=== PATIENT | male | born 1955 | race Caucasian/White ===

== ENCOUNTER 2016-08-10 13:17 | Inpatient (IN) | payer SELFPAY ==
--- NOTE | 2016-08-10 13:30 | ER Document Report ---
ED Medical Screen (RME) - General Stated Complaint: WEAKNESS Mode of Arrival: Wheelchair Notes: Patient presents to the emergency department with complaints of strokelike symptoms. Reports he woke up at 4:00 this morning feeling weak and off balance. His girlfriend at his reports the symptoms are worse than the last stroke he had 5 years ago. He denies fever vomiting diarrhea. He just buried his sister 2 weeks ago from a stroke. Patient's blood pressure extremely elevated. I have consulted the attending provider dr valadez for CT Head per [facility] guidelines I have greeted and performed a rapid initial assessment of this patient. A comprehensive ED assessment and evaluation of the patient, analysis of test results and completion of the medical decision making process will be conducted by additional ED providers. - Related Data Allergies/Adverse Reactions: No Known Allergies Allergy (Unverified 08/10/16 13:26)
[2016-08-10 14:33] LABS: ABSOLUTE LYMPHOCYTES (AUTO) 1.1 10^3/uL (0.5-4.7); ABSOLUTE MONOCYTES (AUTO) 0.3 10^3/uL (0.1-1.4); ABSOLUTE NEUT (AUTO) 4.6 10^3/uL (1.7-8.2); BASOPHILS % (AUTO) 0.6 % (0-2); EOSINOPHILS % (AUTO) 0.3 % (0-6); HEMATOCRIT 46.3 % (37.9-51.0); HEMOGLOBIN 15.3 g/dL (13.5-17.0); HGB HCT DIFFERENCE -0.4; LYMPHOCYTES % (AUTO) 17.8 % (13-45); MEAN CORPUSCULAR HEMOGLOBIN 29.1 pg (27.0-33.4); MEAN CORPUSCULAR HGB CONC 33.1 g/dL (32.0-36.0); MEAN CORPUSCULAR VOLUME 88 fl (80-97); MONOCYTES % (AUTO) 5.7 % (3-13); PROTHROMBIN TIME 12.7 SEC (11.4-15.4); RED BLOOD COUNT 5.27 10^6/uL (4.35-5.55); RED CELL DISTRIBUTION WIDTH 14.3 % (11.5-14.0); SEGMENTED NEUTROPHILS % (AUTO) 75.6 % (42-78); WHITE BLOOD COUNT 6.1 10^3/uL (4.0-10.5)
[2016-08-10 14:34] LABS: PARTIAL THROMBOPLASTIN TIME 28.6 SEC (23.5-35.8)
[2016-08-10] MEDS ORDERED: LABETALOL HCL INJ 20 MG/4 ML DISP.SYRIN IV ONE (14:44)
[2016-08-10] MEDS ORDERED: NICOTINE 14 MG/24 HR PATCH.TD24 TD ONE (14:45)
--- NOTE | 2016-08-10 14:47 | ER Document Report ---
ED Neuro Symptoms/Deficit - General Chief Complaint: S/S of Possible Stroke Stated Complaint: WEAKNESS Time seen by provider: 14:45 Mode of Arrival: Wheelchair Information source: Patient Notes: As is a 61-year-old man with a history of untreated hypertension, 2 pack per day smoker presents to the emergency room with acute onset of right sided weakness, unsteady gait. Patient states that the symptoms started at 4:00 this morning. TRAVEL OUTSIDE OF THE [place] IN LAST 30 DAYS: No - HPI Patient complains to provider of: Difficulty walking, Weakness Onset: This morning Awoke with symptoms: Yes Symptoms are: Constant Duration: Continues in ED Quality of pain: No pain Severity: None Pain Level: Denies Context: denies: None, Insect bite, Tick bite, Falling, Head injury, Other Loss of consciousness: No: No loss of consciousness, Unsure, Dazed, Brief ( seconds), Prolonged (minutes), Still comatose Was STROKE ALERT Called: Yes Baseline Cognitive: Alert, oriented X 3 Baseline Gait: Walks w/o assistance Pre-existing weakness: No: Face, General, Hand, Lower extremity, Upper extremity Alert To: Name/Voice Patient Orientation: Person, Place, Time, Events Character of altered mental status: No: Agitated, Confused, Combative, Decreased responsiveness, Disoriented, Seizure activity, Trouble concentrating, Unchanged from baseline, Unresponsive New weakness: RUE, RLE Altered sensation: denies: LUE, LLE, RUE, RLE, L facial, R facial, General ( diffuse) Decreased ability to stand/walk: Off balance Vision problem/glaucoma: No Associated symptoms: denies: Chest pain, Seizure, Short of breath Similar symptoms previously: No Recently seen / treated by doctor: No - Related Data Allergies/Adverse Reactions: No Known Allergies Allergy (Unverified 08/10/16 13:26) Home Medications: Current Home Medications No Home Medications 08/10/16 [History] Past Medical History - General Information source: Patient - Social History Smoking Status: Current Every Day Smoker Cigarette use (# per day): Yes - 2 packs per day Chew tobacco use (# tins/day): No Smoking Education Provided: Yes - approximately 3 minutes Frequency of alcohol use: None Drug Abuse: None Lives with: Spouse/Significant other Family History: None Patient has suicidal ideation: No Patient has homicidal ideation: No - Past Medical History Cardiac Medical History: Reports: Hx Hypertension Pulmonary Medical History: Reports: None EENT Medical History: Reports: None Neurological Medical History: Reports: Hx Cerebrovascular Accident Endocrine Medical History: Reports: None Renal/ Medical History: Denies: Hx Peritoneal Dialysis Malignancy Medical History: Reports None GI Medical History: Reports: None Musculoskeltal Medical History: Reports None Skin Medical History: Reports None Psychiatric Medical History: Reports: None Traumatic Medical History: Reports: None Infectious Medical History: Reports: None Past Surgical History: Reports: Other - Left lower extremity orthopedic surgery Review of Systems - Review of Systems Notes: Review of systems: Constitutional: Denies fever, chills. EENT: Denies ear pain, sinus tenderness, throat pain, throat swelling. Cardiovascular: Denies chest pain, palpitations, dyspnea or edema. Respiratory: Denies wheezing, cough, hemoptysis. Abdomen: Denies abdominal pain, nausea, vomiting, diarrhea. Denies BRBPR or melena. Genitourinary: Denies dysuria, pyuria, hematuria, flank pain. Musculoskeletal: denies joint pain or swelling, denies back pain. Neurologic: Denies headache, photophobia, neck stiffness, weakness. Denies loss of bowel or bladder function. Denies saddle anesthesia. Otherwise, neurologic symptoms as above in the history of present illness. Skin: Denies rash, lesions. Physical Exam - Vital signs Vitals: Temp Pulse Resp BP Pulse Ox 98.3 F 89 18 191/113 H 96 08/10/16 13:24 08/10/16 13:24 08/10/16 13:24 08/10/16 13:24 08/10/16 13:24 Notes: Physical exam: GENERAL: HEAD: Atraumatic, normocephalic. EYES: Pupils equal round and reactive to light, extraocular movements intact, sclera anicteric, conjunctiva are normal. ENT: TMs normal, nares patent, oropharynx clear without exudates. Moist mucous membranes. NECK: Normal range of motion, supple without lymphadenopathy or JVD. LUNGS: Breath sounds clear to auscultation bilaterally and equal. No wheezes rales or rhonchi. HEART: Regular rate and rhythm without murmurs, rubs or gallops. ABDOMEN: Soft, normoactive bowel sounds. No tenderness to palpation. No guarding, no rebound. No masses appreciated. EXTREMITIES: Normal range of motion, no pitting or edema. No clubbing or cyanosis. NEUROLOGICAL: GCS is 15, patient is alert and can only responsive. He is able to answer both his month and age correctly, he is able to close his eyes and open them up, make a fist and open them up, he has normal gaze. Patient's visual esparza are normal, there is no facial palsy, the right upper extremity and right lower extremity does drift but does not touch the bed, patient does have limited ataxia in the right upper extremity, sensation is normal to the face upper and lower extremities, patient has no aphasia, normal "best" language, no dysarthria , no extinction. NIH score is 3 PSYCH: Normal mood, normal affect. SKIN: Warm, Dry, normal turgor, no rashes or lesions noted. Course - Re-evaluation Re-evalutation: 08/10/16 16:11 Note: This patient does have an NIH of 3 consistent with a small stroke. He is not a candidate for thrombolytics based upon the time span greater than 4.5 hours. He is noted to have accelerated hypertension and was started on blood pressure medicine. 08/10/16 19:35 08/10/16 19:36 - Vital Signs Vital signs: Temp Pulse Resp BP Pulse Ox 98.3 F 89 18 191/113 H 96 08/10/16 13:24 08/10/16 13:24 08/10/16 13:24 08/10/16 13:24 08/10/16 13:24 - Laboratory Result Diagrams: 08/10/16 14:18 08/10/16 14:18 Laboratory results interpreted by me: 08/10/16 14:18 RDW 14.3 H - Diagnostic Test Radiology reviewed: Image reviewed, Reports reviewed - CT of the head shows no acute insult Critical Care Note - Critical Care Note Total time excluding time spent on procedures (mins): 60 Discharge - Discharge Clinical Impression: acute stroke, accelerated hypertension Clinical Impression: (Ruled Out): QT stroke Condition: Stable Disposition: ADMITTED INPATIENT Admitting Provider: Hospitalist - Dr. Sanchez Unit Admitted: [facility]
[2016-08-10 14:49] LABS: ALANINE AMINOTRANSFERASE 32 U/L (21-72); ALBUMIN 4.9 g/dL (3.5-5.0); ALKALINE PHOSPHATASE 114 U/L (38-126); ANION GAP 10 (5-19); ASPARTATE AMINO TRANSFERASE 18 U/L (17-59); BILIRUBIN,TOTAL 0.7 mg/dL (0.2-1.3); BLOOD UREA NITROGEN 7 mg/dL (7-20); CALCIUM 9.8 mg/dL (8.4-10.2); CARBON DIOXIDE 29 mmol/L (22-30); CHLORIDE 102 mmol/L (98-107); CREATINE KINASE 52 U/L (55-170); CREATININE RESULT 0.67 mg/dL (0.52-1.25); GLUCOSE 104 mg/dL (75-110); POTASSIUM 4.3 mmol/L (3.6-5.0); SODIUM 141.1 mmol/L (137-145); TOTAL PROTEIN 8.1 g/dL (6.3-8.2)
[2016-08-10 15:01] LABS: CREATINE KINASE MB 0.72 ng/mL (<4.55)
[2016-08-10 15:06] LABS: TROPONIN I < 0.012 ng/mL
--- NOTE | 2016-08-10 17:22 | PDOC H&P ---
History of Present Illness Admission Date/PCP: 08/10/16 16:25 Patient complains of: weakness right upper lower extremities and unsteady gait History of Present Illness: TIMMY REYNOLDS is a 61 year old male who woke up early this morning with unsteady gait , weakness and numbness right upper lower extremities Patient went back to sleep and later his gait was still unsteady , he felt like "a stiff neck " , and the fingers were still "spongy " He came to the ED for evaluation ; he was found not to be a candidate for TPA (NIH Score of 3 ) and referred to Hospitalist for admission Patient had a previous stroke in 2010 (MRI showed acute infarct white matter right cerebral hemisphere-carotid US showed 50% stenosis -echo EF 45% ). Patient recovered after previous stroke without sequellae Past Medical History Cardiac Medical History: Reports: Hypertension Neurological Medical History: Reports: Ischemic CVA - 2010 Past Surgical History Past Surgical History: Reports: Orthopedic Surgery - Left Leg, Tonsillectomy Social History Lives with: Spouse/Significant other Smoking Status: Current Every Day Smoker Cigarettes Packs Per Day: 40 Frequency of Alcohol Use: None Last Alcohol Use: 08/10/16 - Advance Directive Resuscitation Status: Full Code Surrogate healthcare decision maker:: Pat Family History Family History: CAD, CVA Parental Family History Reviewed: Yes - mother [place] 84 yo Children Family History Reviewed: Yes Sibling(s) Family History Reviewed.: Yes - brother [place] 49 yo sister stroke age 64 Medication/Allergy Allergies/Adverse Reactions: No Known Allergies Allergy (Unverified 08/10/16 13:26) Review of Systems Constitutional: ABSENT: chills, fever(s), headache(s), weight gain, weight loss Eyes: ABSENT: visual disturbances Ears: ABSENT: hearing changes Cardiovascular: ABSENT: chest pain, dyspnea on exertion, edema, orthropnea, palpitations Respiratory: ABSENT: cough, hemoptysis Gastrointestinal: ABSENT: abdominal pain, constipation, diarrhea, hematemesis, hematochezia, nausea, vomiting Genitourinary: ABSENT: dysuria, hematuria Musculoskeletal: ABSENT: joint swelling Integumentary: ABSENT: rash, wounds Neurological: PRESENT: as per HPI, abnormal gait, numbness, weakness - right upper lower extremities. ABSENT: abnormal speech, confusion, dizziness, focal weakness, syncope Psychiatric: ABSENT: anxiety, depression, homidical ideation, suicidal ideation Endocrine: ABSENT: cold intolerance, heat intolerance, polydipsia, polyuria Hematologic/Lymphatic: ABSENT: easy bleeding, easy bruising Physical Exam Vital Signs: Temp Pulse Resp BP Pulse Ox 98.3 F 86 20 160/97 H 97 08/10/16 13:24 08/10/16 14:34 08/10/16 16:01 08/10/16 16:01 08/10/16 16:01 General appearance: PRESENT: no acute distress Head exam: PRESENT: atraumatic, normocephalic Eye exam: PRESENT: conjunctiva pink, EOMI, PERRLA. ABSENT: scleral icterus Ear exam: PRESENT: normal external ear exam Mouth exam: PRESENT: moist, tongue midline Neck exam: ABSENT: carotid bruit, JVD, lymphadenopathy, thyromegaly Respiratory exam: PRESENT: clear to auscultation manjula. ABSENT: rales, rhonchi, wheezes Cardiovascular exam: PRESENT: RRR. ABSENT: diastolic murmur, rubs, systolic murmur Pulses: PRESENT: normal dorsalis pedis pul Vascular exam: PRESENT: normal capillary refill GI/Abdominal exam: PRESENT: normal bowel sounds, soft. ABSENT: distended, guarding, mass, organolmegaly, rebound, tenderness Rectal exam: PRESENT: deferred Extremities exam: PRESENT: full ROM. ABSENT: calf tenderness, clubbing, pedal edema Neurological exam: PRESENT: alert, awake, oriented to person, oriented to place , oriented to time, oriented to situation, motor sensory deficit - slight decrease strengh right upper lower extremities no facial droop Psychiatric exam: PRESENT: appropriate affect, normal mood. ABSENT: homicidal ideation, suicidal ideation Skin exam: PRESENT: dry, intact, warm. ABSENT: cyanosis, rash Results Laboratory Results: Labs- Entire Visit 08/10/16 08/10/16 08/10/16 14:18 14:18 14:18 WBC 6.1 RBC 5.27 Hgb 15.3 Hct 46.3 MCV 88 MCH 29.1 MCHC 33.1 RDW 14.3 H Plt Count 228 Seg Neutrophils % 75.6 Lymphocytes % 17.8 Monocytes % 5.7 Eosinophils % 0.3 Basophils % 0.6 Absolute Neutrophils 4.6 Absolute Lymphocytes 1.1 Absolute Monocytes 0.3 Absolute Eosinophils 0.0 Absolute Basophils 0.0 PT 12.7 INR 0.93 APTT 28.6 Sodium 141.1 Potassium 4.3 Chloride 102 Carbon Dioxide 29 Anion Gap 10 BUN 7 Creatinine 0.67 Est GFR ( Amer) > 60 Est GFR (Non-Af Amer) > 60 Glucose 104 POC Glucose Calcium 9.8 Total Bilirubin 0.7 Direct Bilirubin 0.0 AST 18 ALT 32 Alkaline Phosphatase 114 Creatine Kinase 52 L CK-MB (CK-2) Troponin I Total Protein 8.1 Albumin 4.9 08/10/16 08/10/16 14:18 14:23 WBC RBC Hgb Hct MCV MCH MCHC RDW Plt Count Seg Neutrophils % Lymphocytes % Monocytes % Eosinophils % Basophils % Absolute Neutrophils Absolute Lymphocytes Absolute Monocytes Absolute Eosinophils Absolute Basophils PT INR APTT Sodium Potassium Chloride Carbon Dioxide Anion Gap BUN Creatinine Est GFR ( Amer) Est GFR (Non-Af Amer) Glucose POC Glucose 98 Calcium Total Bilirubin Direct Bilirubin AST ALT Alkaline Phosphatase Creatine Kinase CK-MB (CK-2) 0.72 Troponin I < 0.012 Total Protein Albumin Impressions: Head CT 08/10/16 13:25 IMPRESSION: NORMAL BRAIN CT WITHOUT CONTRAST. Chest X-Ray 08/10/16 13:26 IMPRESSION: NO ACUTE RADIOGRAPHIC FINDING IN THE CHEST. Assessment & Plan - Diagnosis (1) Acute CVA (cerebrovascular accident) Is this a current diagnosis for this admission?: YesPlan: complete workup MRI brain tonite , carotid ultrasound, echocatdiogram initiate therapy with ecotrin 325 mg and lipitor 80 mg MEND Exams (2) Hypertension Qualifiers: Hypertension type: essential hypertension Qualified Code(s): I10 - Essential (primary) hypertension Is this a current diagnosis for this admission?: YesPlan: allow for permissive hypertension (3) Cigarette nicotine dependence Qualifiers: Substance use status: uncomplicated Qualified Code(s): F17.210 - Nicotine dependence, cigarettes, uncomplicated Is this a current diagnosis for this admission?: YesPlan: nicotine patch (4) DVT prophylaxis Is this a current diagnosis for this admission?: Yes - Time Time Spent: 50 to 70 Minutes - Inpatient Certification Based on my medical assessment, after consideration of the patient's comorbidities, presenting symptoms, or acuity I expect that the services needed warrant INPATIENT care.: Yes I certify that my determination is in accordance with my understanding of Medicare's requirements for reasonable and necessary INPATIENT services [42 CFR 412.3e].: Yes Medical Necessity: Need Close Monitoring Due to Risk of Patient Decompensation, Need For Continuous Telemetry Monitoring
[2016-08-10] MEDS: ASPIRIN 325 MG TABLET, ENT COATED PO SCH (19:00)
--- NOTE | 2016-08-10 22:13 | EKG REPORT ---
SEVERITY:- ABNORMAL ECG - SINUS RHYTHM LEFT ANTERIOR FASCICULAR BLOCK PROBABLE ANTEROSEPTAL INFARCT, OLD PROLONGED QT INTERVAL : Confirmed by: Rodrigo Bellamy 10-Aug-2016 22:11:42
[2016-08-10] MEDS: ATORVASTATIN CALCIUM 80 MG TABLET PO SCH (23:34)
[2016-08-11] MEDS ORDERED: MORPHINE SULFATE INJ PF 2 MG/2 ML AMPULE IV PRN ×2 (00:38→04:00)
[2016-08-11] MEDS ORDERED: MORPHINE SULFATE 10 MG/ML INJ ONE (01:03)
[2016-08-11] MEDS ORDERED: MORPHINE SULFATE 10 MG/ML INJ IV PRN (02:57)
[2016-08-11 06:42] LABS: ABSOLUTE LYMPHOCYTES (AUTO) 1.9 10^3/uL (0.5-4.7); ABSOLUTE MONOCYTES (AUTO) 0.4 10^3/uL (0.1-1.4); BASOPHILS % (AUTO) 0.4 % (0-2); EOSINOPHILS % (AUTO) 0.5 % (0-6); HEMATOCRIT 42.9 % (37.9-51.0); HEMOGLOBIN 14.1 g/dL (13.5-17.0); HGB HCT DIFFERENCE -0.6; LYMPHOCYTES % (AUTO) 30.2 % (13-45); MEAN CORPUSCULAR HEMOGLOBIN 28.8 pg (27.0-33.4); MEAN CORPUSCULAR HGB CONC 32.8 g/dL (32.0-36.0); MEAN CORPUSCULAR VOLUME 88 fl (80-97); MONOCYTES % (AUTO) 6.9 % (3-13); RED BLOOD COUNT 4.89 10^6/uL (4.35-5.55); RED CELL DISTRIBUTION WIDTH 14.4 % (11.5-14.0); WHITE BLOOD COUNT 6.4 10^3/uL (4.0-10.5)
[2016-08-11 06:51] LABS: ALANINE AMINOTRANSFERASE 27 U/L (21-72); ALBUMIN 3.8 g/dL (3.5-5.0); ALKALINE PHOSPHATASE 91 U/L (38-126); ANION GAP 11 (5-19); ASPARTATE AMINO TRANSFERASE 16 U/L (17-59); BILIRUBIN,TOTAL 0.7 mg/dL (0.2-1.3); BLOOD UREA NITROGEN 6 mg/dL (7-20); CALCIUM 9.6 mg/dL (8.4-10.2); CARBON DIOXIDE 26 mmol/L (22-30); CHLORIDE 103 mmol/L (98-107); CHOLESTEROL 173.45 mg/dL (0-200); Direct HDL 39 mg/dL (>40); GLUCOSE 95 mg/dL (75-110); POTASSIUM 3.9 mmol/L (3.6-5.0); SODIUM 139.5 mmol/L (137-145); TRIGLYCERIDES 79 mg/dL (<150)
[2016-08-11 07:02] LABS: DIRECT LDL 120 mg/dL (<100)
[2016-08-11] MEDS: ENOXAPARIN SODIUM INJ 40 MG/0.4 ML DISP.SYRIN SUBCUT SCH (10:26)
--- NOTE | 2016-08-11 10:33 | EKG REPORT ---
SEVERITY:- ABNORMAL ECG - SINUS RHYTHM LEFT ANTERIOR FASCICULAR BLOCK BORDERLINE T WAVE ABNORMALITIES BORDERLINE PROLONGED QT INTERVAL : Confirmed by: Rodrigo Bellamy 11-Aug-2016 10:32:51
--- NOTE | 2016-08-11 16:55 | PDOC PROGRESS REPORT ---
Subjective Progress Note for:: 08/11/16 Subjective:: Patient is somewhat improved he still has some weakness in his right upper and his right lower extremity An MRI of the brain confirmed small ischemic stroke Patient was monitored he did not have any arrhythmia His mentation remains excellent Physical Exam Vital Signs: Temp Pulse Resp BP Pulse Ox 98.0 F 80 18 151/81 H 95 08/11/16 15:41 08/11/16 15:41 08/11/16 15:41 08/11/16 15:41 08/11/16 15:41 Intake & Output 08/10/16 08/11/16 08/12/16 00:59 00:59 00:59 Intake Total 1500 Output Total 1285 Balance 215 Weight 81.9 kg General appearance: PRESENT: no acute distress, well-developed, well-nourished Head exam: PRESENT: atraumatic, normocephalic Eye exam: PRESENT: conjunctiva pink, EOMI, PERRLA. ABSENT: scleral icterus Ear exam: PRESENT: normal external ear exam Mouth exam: PRESENT: moist, tongue midline Neck exam: ABSENT: carotid bruit, JVD, lymphadenopathy, thyromegaly Respiratory exam: PRESENT: clear to auscultation manjula. ABSENT: rales, rhonchi, wheezes Cardiovascular exam: PRESENT: RRR. ABSENT: diastolic murmur, rubs, systolic murmur Pulses: PRESENT: normal dorsalis pedis pul Vascular exam: PRESENT: normal capillary refill GI/Abdominal exam: PRESENT: normal bowel sounds, soft. ABSENT: distended, guarding, mass, organolmegaly, rebound, tenderness Rectal exam: PRESENT: deferred Extremities exam: PRESENT: full ROM. ABSENT: calf tenderness, clubbing, pedal edema Neurological exam: PRESENT: alert, awake, oriented to person, oriented to place , oriented to time, oriented to situation, CN II-XII grossly intact. ABSENT: motor sensory deficit Psychiatric exam: PRESENT: appropriate affect, normal mood. ABSENT: homicidal ideation, suicidal ideation Skin exam: PRESENT: dry, intact, warm. ABSENT: cyanosis, rash Results Laboratory Results: 08/11/16 05:18 08/11/16 06:18 08/11/16 08/11/16 08/11/16 05:18 05:18 06:18 WBC 6.4 RBC 4.89 Hgb 14.1 Hct 42.9 MCV 88 MCH 28.8 MCHC 32.8 RDW 14.4 H Plt Count 215 Seg Neutrophils % 62.0 Lymphocytes % 30.2 Monocytes % 6.9 Eosinophils % 0.5 Basophils % 0.4 Absolute Neutrophils 4.0 Absolute Lymphocytes 1.9 Absolute Monocytes 0.4 Absolute Eosinophils 0.0 Absolute Basophils 0.0 Sodium 139.5 Potassium 3.9 Chloride 103 Carbon Dioxide 26 Anion Gap 11 BUN 6 L Creatinine 0.60 Est GFR ( Amer) > 60 Est GFR (Non-Af Amer) > 60 Glucose 95 Calcium 9.6 Total Bilirubin 0.7 AST 16 L ALT 27 Alkaline Phosphatase 91 Total Protein 7.0 Albumin 3.8 Triglycerides 79 Cholesterol 173.45 LDL Cholesterol Direct 120 H VLDL Cholesterol 16.0 HDL Cholesterol 39 L TSH 1.86 08/11/16 08/11/16 00:24 06:18 Troponin I < 0.012 < 0.012 Impressions: Head CT 08/10/16 13:25 IMPRESSION: NORMAL BRAIN CT WITHOUT CONTRAST. Chest X-Ray 08/10/16 13:26 IMPRESSION: NO ACUTE RADIOGRAPHIC FINDING IN THE CHEST. Head MRI 08/10/16 16:53 IMPRESSION: MILD MICROVASCULAR ISCHEMIC CHANGE. FOCAL AREA OF RESTRICTED DIFFUSION IN THE LEFT BASAL GANGLIA CONSISTENT WITH ACUTE INFARCT. Assessment & Plan - Diagnosis (1) Acute CVA (cerebrovascular accident) Is this a current diagnosis for this admission?: Yes (2) Hypertension Qualifiers: Hypertension type: essential hypertension Qualified Code(s): I10 - Essential (primary) hypertension Is this a current diagnosis for this admission?: Yes (3) Cigarette nicotine dependence Qualifiers: Substance use status: uncomplicated Qualified Code(s): F17.210 - Nicotine dependence, cigarettes, uncomplicated Is this a current diagnosis for this admission?: Yes (4) DVT prophylaxis Is this a current diagnosis for this admission?: Yes - Time Time Spent with patient: Awaiting get reports on carotid ultrasound and echocardiogram to be performed Continue present management Patient will be discharged tomorrow outpatient physical therapy Time Spent with patient: 25-34 minutes
[2016-08-11] MEDS ORDERED: NICOTINE 21 MG/24 HR PATCH.TD24 TD ONE (20:15)
[2016-08-11] MEDS: ATORVASTATIN CALCIUM 80 MG TABLET PO SCH (21:48)
[2016-08-12] MEDS: ENOXAPARIN SODIUM INJ 40 MG/0.4 ML DISP.SYRIN SUBCUT SCH (08:46)
[2016-08-12] MEDS: ASPIRIN 325 MG TABLET, ENT COATED PO SCH (09:55)
[2016-08-12] MEDS ORDERED: NICOTINE 21 MG/24 HR PATCH.TD24 TD SCH (10:00)
[2016-08-12] MEDS ORDERED: AMLODIPINE BESYLATE 5 MG TABLET PO SCH (10:00)
[2016-08-12 17:16] VITALS: BP 179/63
--- NOTE | 2016-08-12 18:03 | XCELERA REPORT ---
[address] [address] Transthoracic Echocardiogram Report Name: TIMMY REYNOLDS Age: 61 yrs Gender: Male : 1955 Patient Status: Inpatient Patient Location: [id number]\S\329\S\A Study Date: 08/12/2016 09:05 AM Height: 73 in Weight: 184 lb BSA: 2.1 m2 Procedure: A two-dimensional transthoracic echocardiogram with color flow and Doppler was performed. Study Quality: Fair. Reason For Study: acute CVA History: CVA. Ordering Physician: MARILIA CHEW Performed By: Becca Berry Interpretation Summary There is no obvious cardiac source of embolus noted on this transthoracic echocardiogram. Follow-up with a KELLY is suggested if cardiac source is still suspected. The left ventricle is mildly dilated. There is normal left ventricular wall thickness. Left ventricular systolic function is mildly reduced. LV EF is 45% Doppler measurements suggest impaired left ventricular relaxation, which is associated with grade I/IV or mild diastolic dysfunction There is mild global hypokinesis of the left ventricle. There is no thrombus. There is no ventricular septal defect visualized. The right ventricle is normal in size and function. The left atrial size is normal. The interatrial septum is intact with no evidence for an atrial septal defect. There is no evidence of mitral valve prolapse. There is no mitral valve stenosis. There is a mild amount of mitral regurgitation There is no aortic valve stenosis There is no LVOT obstruction. There is a trace to mild amount of aortic regurgitation There is no tricuspid stenosis. There is a trace amount of tricuspid regurgitation Right ventricular systolic pressure is normal. RVSP is 26 mm of Hg. The aortic root is mildly dilated There is no pericardial effusion. MMode/2D Measurements \T\ Calculations RVDd: 2.0 cm LVIDd: 5.8 cm FS: 27.4 % Ao root diam: 3.8 cm IVSd: 1.1 cm LVIDs: 4.2 cm EDV(Teich): 164.8 ml LVPWd: 1.1 cm ESV(Teich): 78.2 ml Ao root area: 11.1 cm2 EF(Teich): 52.6 % LA dimension: 3.7 cm Doppler Measurements \T\ Calculations MV E max susie: MV P1/2t max susie: Ao V2 max: LV V1 max P.4 cm/sec 43.4 cm/sec 96.0 cm/sec 2.0 mmHg MV A max susie: MV P1/2t: 38.1 msec Ao max PG: LV V1 max: 73.5 cm/sec 3.7 mmHg 69.9 cm/sec MV E/A: 0.58 MVA(P1/2t): 5.8 cm2 MV dec slope: 334.1 cm/sec2 MV dec time: 0.12 sec PA V2 max: TR max susie: 82.9 cm/sec 227.0 cm/sec PA max PG: TR max P.6 mmHg 2.8 mmHg Left Ventricle The left ventricle is mildly dilated. There is normal left ventricular wall thickness. Left ventricular systolic function is mildly reduced. LV EF is 45%. Doppler measurements suggest impaired left ventricular relaxation, which is associated with grade I/IV or mild diastolic dysfunction. There is mild global hypokinesis of the left ventricle. There is no thrombus. There is no ventricular septal defect visualized. Right Ventricle The right ventricle is normal in size and function. Atria The right atrium is normal. The left atrial size is normal. The interatrial septum is intact with no evidence for an atrial septal defect. Mitral Valve There is no evidence of mitral valve prolapse. There is no vegetation seen on the mitral valve. There is no mitral valve stenosis. There is a mild amount of mitral regurgitation. Aortic Valve There is no aortic valve stenosis. There is no LVOT obstruction. There is a trace to mild amount of aortic regurgitation. Tricuspid Valve There is no tricuspid stenosis. There is a trace amount of tricuspid regurgitation. Right ventricular systolic pressure is normal. RVSP is 26 mm of Hg. Pulmonic Valve There is no pulmonic valvular stenosis. There is no pulmonic valvular regurgitation. Great Vessels The aortic root is mildly dilated. Effusions There is no pericardial effusion. : MARILIA CHEW > Hannah Elizondo
--- NOTE | 2016-08-12 18:51 | PDOC DISCHARGE SUMMARY ---
General - Admit/Disc Date/PCP Admission Date/Primary Care Provider: 08/10/16 16:57 Discharge Date: 08/12/16 - Discharge Diagnosis (1) Acute CVA (cerebrovascular accident) Is this a current diagnosis for this admission?: YesSummary: Patient presented to the ED with left-sided hemiparesis He was not a candidate for TPA Initial CT of the brain was unremarkable An MRI showed restricted diffusion in the left basal ganglia Carotid ultrasound was unremarkable Echocardiogram showed decreased EF at 45% and hypokinesis with the left ventricle Patient was evaluated by physical therapy, and he did well with a rolling walker Patient wanted to go home with outpatient PT he was referred to cardiology for close follow-up; (2) Hypertension Is this a current diagnosis for this admission?: YesSummary: Patient was discharged on ramipril and Coreg His blood pressure during his hospital stay was around 117/80 We suspect that the patient had accelerated hypertension prior to his CVA (3) Cigarette nicotine dependence Is this a current diagnosis for this admission?: YesSummary: Patient was given a nicotine patch (4) DVT prophylaxis Is this a current diagnosis for this admission?: Yes (5) Cardiomyopathy Is this a current diagnosis for this admission?: YesSummary: Likely ischemic cardiomyopathy with an EF of 45% And hypokinesis of the left ventricle Patient was discharged on ramipril aspirin and Coreg Systolic dysfunction was well compensated at discharge Patient is to follow up with cardiology - Additional Information Resuscitation Status: Full Code Discharge Diet: Cardiac Discharge Activity: Activity As Tolerated Home Medications: Aspirin [Ecotrin 325 mg EC Tablet] 325 mg PO DAILY #30 tabec 08/12/16 Carvedilol [Coreg 6.25 mg Tablet] 6.25 mg PO Q12 #60 tablet 08/12/16 Nicotine [Nicoderm 21 mg/24 Hr Transderm Patch] 1 each TD DAILY #30 patch.td24 08/12/16 Ramipril [Altace 2.5 mg Capsule] 1 cap PO BID #60 capsule 08/12/16 Rosuvastatin Calcium [Crestor 20 mg Tablet] 20 mg PO DAILY #30 tablet 08/12/16 History of Present Illness Patient complains of: weakness right upper right lower extemities History of Present Illness: TIMMY REYNOLDS is a 61 year old male who woke up early this morning with unsteady gait , weakness and numbness right upper lower extremities Patient went back to sleep and later his gait was still unsteady , he felt like "a stiff neck " , and the fingers were still "spongy " He came to the ED for evaluation ; he was found not to be a candidate for TPA (NIH Score of 3 ) and referred to Hospitalist for admission Patient had a previous stroke in 2010 (MRI showed acute infarct white matter right cerebral hemisphere-carotid US showed 50% stenosis -echo EF 45% ). Patient recovered after previous stroke without sequellae Hospital Course Hospital Course: See above Physical Exam Vital Signs: Temp Pulse Resp BP Pulse Ox 97.7 F 89 18 179/63 H 96 08/12/16 18:34 08/12/16 18:34 08/12/16 18:34 08/12/16 18:34 08/12/16 18:34 Intake & Output 08/11/16 08/12/16 08/13/16 00:59 00:59 00:59 Intake Total 2466 1430 Output Total 1885 300 Balance 581 1130 Weight 81.9 kg 81.3 kg General appearance: PRESENT: no acute distress, well-developed, well-nourished Head exam: PRESENT: atraumatic, normocephalic Eye exam: PRESENT: conjunctiva pink, EOMI, PERRLA. ABSENT: scleral icterus Ear exam: PRESENT: normal external ear exam Mouth exam: PRESENT: moist, tongue midline Neck exam: ABSENT: carotid bruit, JVD, lymphadenopathy, thyromegaly Respiratory exam: PRESENT: clear to auscultation manjula. ABSENT: rales, rhonchi, wheezes Cardiovascular exam: PRESENT: RRR. ABSENT: diastolic murmur, rubs, systolic murmur Pulses: PRESENT: normal dorsalis pedis pul Vascular exam: PRESENT: normal capillary refill GI/Abdominal exam: PRESENT: normal bowel sounds, soft. ABSENT: distended, guarding, mass, organolmegaly, rebound, tenderness Rectal exam: PRESENT: deferred Extremities exam: PRESENT: full ROM. ABSENT: calf tenderness, clubbing, pedal edema Neurological exam: PRESENT: alert, awake, oriented to person, oriented to place , oriented to time, oriented to situation, other - Slight weakness right upper right lower extremities. ABSENT: motor sensory deficit Psychiatric exam: PRESENT: appropriate affect, normal mood. ABSENT: homicidal ideation, suicidal ideation Skin exam: PRESENT: dry, intact, warm. ABSENT: cyanosis, rash Results Laboratory Results: 08/11/16 05:18 08/11/16 06:18 08/11/16 08/11/16 00:24 06:18 Troponin I < 0.012 < 0.012 08/10/16 08/11/16 08/11/16 14:18 00:24 05:18 Hgb 14.1 Hct 42.9 BUN Creatinine Troponin I < 0.012 < 0.012 Cholesterol LDL Cholesterol Direct VLDL Cholesterol HDL Cholesterol 08/11/16 08/11/16 06:18 06:18 Hgb Hct BUN 6 L Creatinine 0.60 Troponin I < 0.012 Cholesterol 173.45 LDL Cholesterol Direct 120 H VLDL Cholesterol 16.0 HDL Cholesterol 39 L Impressions: Head CT 08/10/16 13:25 IMPRESSION: NORMAL BRAIN CT WITHOUT CONTRAST. Chest X-Ray 08/10/16 13:26 IMPRESSION: NO ACUTE RADIOGRAPHIC FINDING IN THE CHEST. Head MRI 08/10/16 16:53 IMPRESSION: MILD MICROVASCULAR ISCHEMIC CHANGE. FOCAL AREA OF RESTRICTED DIFFUSION IN THE LEFT BASAL GANGLIA CONSISTENT WITH ACUTE INFARCT. Carotid Doppler Study 08/12/16 00:00 IMPRESSION: NO HEMODYNAMICALLY SIGNIFICANT STENOSIS. Plan Discharge Plan: Discharged home with outpatient PT Follow-up with Dr. Sellers [facility] Time Spent: Greater than 30 Minutes
== END 2016-08-12 19:28 | disposition home or self-care (01) | DRG 65 ==
LOC: ER 13:17 → UNDOADMIN 16:25 → EH 16:25 → 3S 19:55
PROVIDERS: ADMIT Emergency Medicine; ATTEND Emergency Medicine
DX: I63.8 Other cerebral infarction (principal); G81.94 Hemiplegia, unspecified affecting left nondominant side; I25.5 Ischemic cardiomyopathy; I10 Essential (primary) hypertension; F17.210 Nicotine dependence, cigarettes, uncomplicated; Z79.899 Other long term (current) drug therapy
CPT/HCPCS: 36415; 70450; 70551; 71010; 80053; 80061; 82550; 82553; 82962; 84443; 84484; 85025; 85610; 85730; 93005; 93010; 93306; 93880; 96374; 99291; J1650; J2270; J3490

== ENCOUNTER → 2016-09-06 | Outpatient (CLI) | payer OTHER | LOC: CCC 09:43 | DX: I10 Essential (primary) hypertension (principal) | CPT/HCPCS: 36415; 83036; 84153; 84443 ==

== ENCOUNTER → 2016-10-04 | Outpatient (CLI) | payer OTHER | LOC: OD 11:48 | DX: M54.2 Cervicalgia (principal); M47.892 Other spondylosis, cervical region | CPT/HCPCS: 72050 ==

== ENCOUNTER 2017-05-05 08:29 | Day surgery (SDC) | payer MEDICAID, OTHER ==
[~2017-05-05 08:29] MED LIST: PROPOFOL INJ 200 MG/20 ML VIAL IV ONE
[2017-05-05 10:56] VITALS: BP 105/58
--- NOTE | 2017-05-05 13:33 | Operative Report ---
Operative Report DATE OF SURGERY: 05/05/17 Operative Report: The risks, benefits and alternatives of the procedure including risks of bleeding, perforation requiring surgery are explained to the patient in detail and informed consent was obtained. Patient was taken back to the endoscopy suite and placed in the left, lateral decubital position. Timeout was called. Propofol medications administered. A rectal examination is done which did not reveal any masses, tears or fissures. An Olympus videoscope was inserted into the patient's rectum. The scope was then carefully advanced all the way to the cecum. The cecum was identified by the usual anatomical landmarks including the ileocecal valve as well as the appendiceal office. Prep is good. Photodocumentation is obtained. The scope was then sequentially pulled back via the various segments of the colon including the ascending colon, hepatic flexure, transverse colon, splenic flexure, descending colon finding to the rectosigmoid portions of the colon. Retroflexion maneuvers performed. PREOPERATIVE DIAGNOSIS: Colorectal cancer screening. POSTOPERATIVE DIAGNOSIS: Descending colon polyp that was removed via snare polypectomy. Inflammation, on both the left as well as the right of the colon status post biopsy. Internal hemorrhoids. No associated diverticulitis. No AVMs noted OPERATION: Colonoscopy with snare polypectomy. Colonoscopy with biopsy SURGEON: JENELLE MERLOS ANESTHESIA: LMAC TISSUE REMOVED OR ALTERED: As noted above. COMPLICATIONS: None. ESTIMATED BLOOD LOSS: None. INTRAOPERATIVE FINDINGS: As noted above. PROCEDURE: Patient tolerated the procedure well. No immediate postprocedure complications are noted. Patient discharged in good condition. Discharge date 05/05/2017. Discharge diet: Regular. Discharge activity: Regular. 2-3 week follow-up to discuss findings. 3-5 year surveillance colonoscopy. We will wait on pathology. Patient is instructed to call the office or proceed to the emergency room should there be any further problems or questions.
== END 2017-05-05 11:00 | disposition home or self-care (01) ==
LOC: END 08:29
PROVIDERS: ATTEND Internal Medicine Gastroenterology
PROC: 0DBG8ZX Excision of Left Large Intestine, Via Natural or Artificial Opening Endoscopic, Diagnostic (ICD-10-PCS; principal; 2017-05-05 10:30)
PROC: 0DBM8ZX Excision of Descending Colon, Via Natural or Artificial Opening Endoscopic, Diagnostic (ICD-10-PCS; 2017-05-05 10:30)
DX: D12.4 Benign neoplasm of descending colon (principal); K52.9 Noninfective gastroenteritis and colitis, unspecified; K64.8 Other hemorrhoids; K44.9 Diaphragmatic hernia without obstruction or gangrene; I10 Essential (primary) hypertension; M19.90 Unspecified osteoarthritis, unspecified site; E78.00 Pure hypercholesterolemia, unspecified; Z86.73 Personal history of transient ischemic attack (TIA), and cerebral infarction without residual deficits; Z79.82 Long term (current) use of aspirin; Z79.1 Long term (current) use of non-steroidal anti-inflammatories (NSAID); Z79.899 Other long term (current) drug therapy
CPT/HCPCS: 45380; 45385; 88305 ×2; J2704; 810

== ENCOUNTER 2017-06-18 07:03 | Day surgery (SDC) | payer MEDICAID ==
[2017-05-22 09:21] LABS: HEMATOCRIT 38.3 % (37.9-51.0); HGB HCT DIFFERENCE 0.7; MEAN CORPUSCULAR HEMOGLOBIN 30.7 pg (27.0-33.4); MEAN CORPUSCULAR VOLUME 90 fl (80-97); RED BLOOD COUNT 4.25 10^6/uL (4.35-5.55); RED CELL DISTRIBUTION WIDTH 13.6 % (11.5-14.0)
--- NOTE | 2017-05-23 09:36 | EKG REPORT ---
SEVERITY:- ABNORMAL ECG - SINUS RHYTHM INFERIOR INFARCT, OLD : Confirmed by: Rodrigo Bellamy 23-May-2017 09:34:46
[~2017-06-18 07:03] MED LIST changes: +ACETAMINOPHEN 325 MG TABLET PO PRN; +CEFAZOLIN 1 GM/D5W RTU 1 GM/50 ML RTUPB IV PRN; +LACTATED RINGERS 1000 ML IV PRN; +LIDOCAINE 0.5% INJ-PF (5 MG/ML) 50 ML SDV SUBCUT PRN; -PROPOFOL INJ 200 MG/20 ML VIAL IV ONE
[2017-06-18] MEDS ORDERED: BUPIVACAINE HCL 0.25 % INJ/PF (2.5 MG/1 ML) 30 ML VIAL ONE (07:19)
[2017-06-18] MEDS ORDERED: BUPIVACAINE INJ/PF LIPOSOME/PF 266 MG/20 ML SDV ONE (07:20)
[2017-06-18] MEDS ORDERED: ALBUTEROL SULFATE 0.083% NEB 2.5 MG/3 ML AMPUL NEB ONE (07:53)
[2017-06-18] MEDS ORDERED: LIDOCAINE 2% INJ-PF (20 MG/ML) 10 ML AMPUL ONE (08:43)
[2017-06-18] MEDS ORDERED: FENTANYL CITRATE INJ/PF 100 MCG/2 ML AMPUL ONE ×2 (08:43)
[2017-06-18] MEDS ORDERED: MIDAZOLAM 2 MG/2 ML INJ ONE (08:44)
[2017-06-18] MEDS ORDERED: PROPOFOL INJ 200 MG/20 ML VIAL IV ONE (08:44)
[2017-06-18] MEDS ORDERED: HYDROMORPHONE HCL INJ/PF 2 MG/ML AMPULE ONE (08:44)
[2017-06-18] MEDS ORDERED: ONDANSETRON HCL INJ/PF 4 MG/2 ML SDV ONE (08:44)
[2017-06-18] MEDS ORDERED: ACETAMINOPHEN 100 ML IV ONE (08:44)
[2017-06-18] MEDS ORDERED: DEXAMETHASONE SOD PHOSPHATE INJ 4 MG/1 ML VIAL ONE (08:44)
[2017-06-18] MEDS ORDERED: KETAMINE HCL INJ 500 MG/10 ML VIAL ONE (09:40)
[2017-06-18] MEDS ORDERED: PROMETHAZINE HCL INJ 25 MG/1 ML VIAL IV PRN ×2 (09:49)
[2017-06-18] MEDS ORDERED: FENTANYL CITRATE INJ/PF 100 MCG/2 ML AMPUL IV PRN ×3 (09:49)
[2017-06-18] MEDS ORDERED: OXYCODONE-ACETAMINOPHEN 5-325 MG TABLET PO PRN ×2 (09:49)
[2017-06-18] MEDS ORDERED: MORPHINE SULFATE 10 MG/ML INJ IV PRN (09:49)
[2017-06-18] MEDS ORDERED: DIPHENHYDRAMINE HCL 50 MG/ML VIAL IV PRN (09:49)
[2017-06-18] MEDS ORDERED: MEPERIDINE HCL/PF INJ 25 MG/1 ML DISP.SYRIN IV PRN (09:49)
[2017-06-18] MEDS ORDERED: ONDANSETRON HCL INJ/PF 4 MG/2 ML SDV IV PRN (09:49)
--- NOTE | 2017-06-18 10:41 | Operative Report ---
Operative Report DATE OF SURGERY: 06/18/17 PREOPERATIVE DIAGNOSIS: Right inguinal hernia, indirect POSTOPERATIVE DIAGNOSIS: Same OPERATION: Right inguinal exploration, right inguinal herniorrhaphy with Bard plug and overlay mesh repair SURGEON: JIMMY WILLS 1ST SUPERVISOR AUDIT CLERKS: SCAR COYLE ANESTHESIA: LMAC TISSUE REMOVED OR ALTERED: Hernia sac COMPLICATIONS: None ESTIMATED BLOOD LOSS: Scant INTRAOPERATIVE FINDINGS: See below PROCEDURE: Right inguinal area was marked in the preop holding area and the patient was taken to the operating room where LMAC anesthesia was induced. The right inguinal area was prepped and draped in sterile fashion with Betadine. Surgical plan and surgical timeout were conducted. The skin overlying the inguinal canal was anesthetized with quarter percent Marcaine. 4-1/2 cm incision was made with a knife, Jakob's fascia divided with electrocautery. The predictable subcutaneous vein was ligated with 2-0 Vicryl suture. The inguinal canal was anesthetized with quarter percent Marcaine. The external oblique fibers were opened along their natural contour. The ilioinguinal nerve was identified and preserved throughout the entire dissection. The contents of the inguinal canal were gingerly mobilized and with a large Yoli drain. The findings revealed an intact inguinal floor medially internal ring to the pubic tubercle. We interrogated the contents within our Yoli loop and found an indirect inguinal hernia sac was dissected free of surrounding cord structures and taken all the way to its point of origin. It was opened and found to contain no visceral structures. It was ligated at its base with a 2-0 Vicryl suture, sac amputated and sent to pathology and the stump allowed to retract into the retroperitoneal area. Careful examination of the external oblique conjoined tendon floor the inguinal canal revealed the structures. Principal problem was a patulous internal ring due to the indirect inguinal hernia. Therefore I felt that a plug overlying mesh repair would be sufficient for this patient. We brought onto the field a medium size Bard PerFix plug patch combination prosthesis. The small plug was inverted into the internal ring space and secured with 0 PDS sutures to conjoined tendon. The ilioinguinal nerve was allowed to lay anteriorly along with cord structures. The overlay patch was trimmed to an appropriate configuration, and sewed to Poupart's ligament, conjoined tendon, with the 2 leaves trimmed and no to each other lateral to the simon internal ring. New Ring was not too tight the nerve was kept out of harm's way throughout the securing of the overlay mesh which required approximately 8 stitches of 0 PDS suture. External oblique aponeurosis closed with 2-0 Vicryl Jakob's fascia 2-0 Vicryl skin with 3-0 Vicryl, Dermabond glue. 20 cc of full-strength Exparel was injected into the subcutaneous soft tissues around the principal incision. Dermabond glue applied. Testicle remained on the right side in the scrotal sac. Patient tolerated procedure well, taken to the recovery room in stable condition. The physician assistant project engineer, Ms. Valente, provided assistance during this case by: Assisting , retracting tissue, instillation of local anesthesia and closure of skin incisions.
--- NOTE | 2017-06-18 10:43 | PDOC DISCHARGE SUMMARY ---
Discharge Summary (SDC) - Discharge Final Diagnosis: Right inguinal hernia Date of Surgery: 06/18/17 Discharge Date: 06/18/17 Condition: Stable Treatment or Instructions: [facility] [address] [place] [id number] Discharge Instructions: Open Abdominal Procedures (Hernia, Bowel Surgery) 1.General Information: a. DO NOT DRIVE a car for 3-4 days after surgery. b. DO NOT consume alcohol, tranquilizers, sleeping medication, or any non- prescribed medication for 24 hours unless approved by your doctor or as long as taking pain medication. c. DO NOT make important decisions or sign any important papers for the first 24 hours after surgery. d. When discharged home the same day as surgery have a responsible person with you the first night. 2.Activity Restriction: 8 weeks; a. Avoid heavy lifting (> 10-15 lbs), straining abdominal muscles and sports, mowing lawn, vacuum service cleaner and bending over a lot. b. Walking is important to avoid blood clots in the legs and deep breathing can prevent pneumonia. c. If it fine to go for walks, up and down steps, and ride in a car. 3.Treatment: a. You may shower in 24 hours after surgery. Do not scrub incision site. Leave skin glue intact. It will fall away on its own. You may cover area with gauze and tape if it is more comfortable c. Do not use oils, powders, or lotion on your incision. 4.Medications: a. You may take narcotic prescription tablets for pain if needed, one tablet every 4 to 6 hours (_Toradol_). b. You may switch to plain Tylenol as you transition from the narcotic. Do not take additional NSAIDs while taking the Toradol. Many adults find good pain relief with Advil 600-800 mg three times a day with meal to work well and avoid narcotic use. High dose Advil should only be used for short courses since it can cause indigestion, ulcer bleeding in the stomach and kidney problems. c. You may resume all normal medications unless a change is specified by your doctors. 5.Diet: a. If going home the same day as surgery start with clear liquids, and if you do well then advance to normal foods low inf fat and protein. Smaller portion size may be almeida the first night. b. When discharged after hospital stay you may resume a normal diet. 6.Notify Physician If: a. Pain is not relieved by pain medication b. Persistent nausea and vomiting c. Chills, fever (above 101) d. Persistent bleeding or swelling at the operative site e. Unable to urinate for 6-8 hours f. Increased redness, drainage, or foul smelling discharge from incision 7. Follow Up Care: a. Please call our office to schedule an appointment with your doctor for 2 weeks. In the event of any postoperative problems or questions you may call our office during business hours or the On-Call surgeon through the dinkey motor operator at [facility]. [facility] [phone] [facility] [phone] (Ask for the surgeon religion teacher) b. I understand the instructions for my postoperative care as described above and a copy has been given to me. _ Witness Patient/Significant Other Date Prescriptions: Ketorolac Tromethamine [Toradol 10 mg Tablet] 10 mg PO Q6HP PRN #25 tablet PRN Reason: Referrals: JAYNE WARE PA-C [Primary Care Provider] - Discharge Activity: No Lifting Over 10 Pounds, No Lifting/Push/Pulling, Walk Frequently Report the Following to Your Physician Immediately: Nausea, Vomiting, Increase in Pain, Fever over 101 Degrees, Swelling, Warmth
[2017-06-18 12:33] VITALS: BP 123/79
[2017-06-18] MEDS ORDERED: PHENYLEPHRINE HCL INJ/PF 10 MG/1 ML SDV ONE (13:07)
== END 2017-06-18 12:30 | disposition home or self-care (01) ==
LOC: OROUT 07:03
PROVIDERS: ATTEND Surgery
PROC: 0YU50JZ Supplement Right Inguinal Region with Synthetic Substitute, Open Approach (ICD-10-PCS; principal; 2017-06-18 09:15)
DX: K40.90 Unilateral inguinal hernia, without obstruction or gangrene, not specified as recurrent (principal); I11.0 Hypertensive heart disease with heart failure; I50.9 Heart failure, unspecified; M19.90 Unspecified osteoarthritis, unspecified site; J44.9 Chronic obstructive pulmonary disease, unspecified; M19.012 Primary osteoarthritis, left shoulder; M19.011 Primary osteoarthritis, right shoulder; M47.9 Spondylosis, unspecified; Z86.73 Personal history of transient ischemic attack (TIA), and cerebral infarction without residual deficits; Z87.891 Personal history of nicotine dependence; Z79.82 Long term (current) use of aspirin; Z79.899 Other long term (current) drug therapy; Z79.1 Long term (current) use of non-steroidal anti-inflammatories (NSAID)
CPT/HCPCS: 93005; 36415 ×2; 84132; 85027; 88302 ×2; 93010; 94640; 49505; C1781; J2250; J0690; J3010; J3490 ×2; J1170; J2370; S0020; J2704; J0131; C9290; 830; J1100; J2405

== ENCOUNTER → 2018-07-21 | Outpatient (CLI) | payer MEDICARE ==
--- NOTE | 2018-07-22 08:09 | XCELERA REPORT ---
[address] [address] Tel: [phone] Fax: [phone] Lower Extremity Arterial Evaluation Name: TIMMY REYNOLDS Age: 63 yrs Gender: Male : 1955 Patient Status: Outpatient Patient Location: [facility] Study Date: 07/21/2018 02:42 PM Procedure: Ankle brachial indicies performed. Reason For Study: CLAUDICATION Ordering Physician: JAYNE WARE Performed By: Alejandrina Trejo Right Side Arterial Evaluation GOKUL in Posterior Tibial:1.14. Multiphasic waveform. Left Side Arterial Evaluation GOKUL in Posterior Tibial:1.08. Multiphasic waveform. Interpretation Summary Normal GOKUL. Suggesting normal arterial system, within the limitations of this technique. : JAYNE WARE > Eric Strickland
== END ==
LOC: SP 13:32
PROVIDERS: ATTEND Physician Assistant
DX: I73.9 Peripheral vascular disease, unspecified (principal)
CPT/HCPCS: 93922